=== PATIENT | female | born 1975 | race Caucasian/White ===

== ENCOUNTER 2019-05-06 14:26 | Inpatient (IN) | payer BC ==
[2019-05-06 19:11] VITALS: BMI 26.9
--- NOTE | 2019-05-06 21:17 | HP ---
CIWA Score Nausea/Vomitin-Mild Nausea/No Vomiting Muscle Tremors: 4-Moderate,w/Arms Extend Anxiety: 4-Mod. Anxious/Guarded Agitation: 3 Paroxysmal Sweats: 1-Minimal Palms Moist Orientation: 3-Disoriented Date>2 days Tacttile Disturbances: 0-None Auditory Disturbances: 0-None Visual Disturbances: 0-None Headache: 0-None Present CIWA-Ar Total Score: 16 - Admission Criteria OASAS Guidelines: Admission for Medically Managed Detox: Requires at least one of the followin. CIWA greater than 12 2. Seizures within the past 24 hours 3. Delirium tremens within the past 24 hours 4. Hallucinations within the past 24 hours 5. Acute intervention needed for co occurring medical disorder 6. Acute intervention needed for co occurring psychiatric disorder 7. Severe withdrawal that cannot be handled at a lower level of care (continued vomiting, continued diarrhea, abnormal vital signs) requiring intravenous medication and/or fluids 8. Admission ROS [facility] Chief Complaint: Alcohol withdrawal symptoms Allergies/Adverse Reactions: Allergies Allergy/AdvReac Type Severity Reaction Status Date / Time No Known Allergies Allergy Verified 05/06/19 19:01 History of Present Illness: 44 years old female reports that she started drinking in June 2018. She has never been admitted to detox and this her first admission to [facility]. She reports insignificant period of sobriety. She has medical history of asthma, depression, anxiety and hypothyroid. She denies suicide attempt/ suicidal ideation at this time. Exam Limitations: No Limitations - Ebola screening Have you traveled outside of the country in the last 21 days: No Have you had contact with anyone from an Ebola affected area: No Do you have a fever: No - Review of Systems Constitutional: Chills, Loss of Appetite, Changes in sleep EENT: reports: No Symptoms Reported Respiratory: reports: No Symptoms reported Cardiac: reports: No Symptoms Reported GI: reports: Nausea, Poor Appetite, Poor Fluid Intake, Abdominal cramping : reports: No Symptoms Reported Musculoskeletal: reports: No Symptoms Reported Integumentary: reports: Dryness, Flushing Neuro: reports: Tremors Endocrine: reports: No Symptoms Reported Hematology: reports: No Symptoms Reported Psychiatric: reports: Mood/Affect Appropiate, Orientated x3, Anxious, Depressed Other Systems: Reviewed and Negative Patient History - Patient Medical History Hx Anemia: No Hx Asthma: Yes (Albuterol) Hx Chronic Obstructive Pulmonary Disease (COPD): No Hx Cancer: No Hx Cardiac Disorders: No Hx Congestive Heart Failure: No Hx Hypertension: No Hx Hypercholesterolemia: No Hx Pacemaker: No HX Cerebrovascular Accident: No Hx Seizures: No Hx Dementia: No Hx Diabetes: No Hx Gastrointestinal Disorders: No Hx Liver Disease: No Hx Genitourinary Disorders: No Hx Sexually Transmitted Disorders: No Hx Renal Disease (ESRD): No Hx Thyroid Disease: Yes (Hypothyroid on Synthroid ) Hx Human Immunodeficiency Virus (HIV): No (Negative 2019) Hx Hepatitis C: No Hx Depression: Yes Hx Suicide Attempt: No (Denies suicidal ideation at this time) Hx Bipolar Disorder: Yes Hx Schizophrenia: No Other Medical History: Anxiety - - Patient Surgical History Past Surgical History: Yes Hx Neurologic Surgery: No Hx Cataract Extraction: No Hx Cardiac Surgery: No Hx Lung Surgery: No Hx Breast Surgery: No Hx Breast Biopsy: No Hx Abdominal Surgery: No Hx Appendectomy: No Hx Cholecystectomy: No Hx Genitourinary Surgery: No Hx Section: No Hx Orthopedic Surgery: No Hx Hysterectomy: No Other Surgical History: Gastric bypass 2013 and 2016 Anesthesia Reaction: No - PPD History Previous Implant?: Yes Documented Results: Negative w/o proof Implanted On Prior R Admission?: No PPD to be Administered?: Yes - Reproductive History Patient is a Female of Child Bearing Age (11 -55 yrs old): Yes Last Menstrual Period: 03/31/19 Patient : No - Smoking Cessation Smoking history: Current every day smoker Have you smoked in the past 12 months: Yes Aproximately how many cigarettes per day: 10 Hx Chewing Tobacco Use: No Initiated information on smoking cessation: Yes 'Breaking Loose' booklet given: 05/06/19 - Substance & Tx. History Hx Alcohol Use: Yes Hx Substance Use: Yes Substance Use Type: Alcohol, Marijuana Hx Substance Use Treatment: Yes (None) - Substances abused Alcohol Substance route: Oral Frequency: Daily Amount used: 1pint of vodka/day Age of first use: 44 Date of last use: 05/06/19 Admission Physical Exam [facility] - Vital Signs Vital Signs: Vital Signs - 24 hr 05/06/19 19:08 Temperature 98.6 F Pulse Rate 97 H Respiratory 16 Rate Blood Pressure 142/98 - Physical General Appearance: Yes: Moderate Distress, Tremorous, Irritable, Anxious HEENTM: Yes: Within Normal Limits Respiratory: Yes: Normal Breath Sounds, No Respiratory Distress Neck: Yes: Supple Breast: Yes: Breast Exam Deferred Cardiology: Yes: Tachycardia Abdominal: Yes: Protuberent Genitourinary: Yes: Within Normal Limits Back: Yes: Normal Inspection Musculoskeletal: Yes: Within Normal Limits Extremities: Yes: Tremors Neurological: Yes: Within Normal Limits, Alert, Normal Mood/Affect Integumentary: Yes: Warm Lymphatic: Yes: Within Normal Limits - Diagnostic (1) Alcohol dependence with withdrawal Current Visit: Yes Status: Acute (2) Hypothyroid Current Visit: Yes Status: Chronic Qualifiers: Hypothyroidism type: unspecified Qualified Code(s): E03.9 - Hypothyroidism , unspecified (3) Asthma Current Visit: Yes Status: Chronic Qualifiers: Asthma severity: moderate Asthma complication type: unspecified (4) Anxiety Current Visit: Yes Status: Chronic (5) Depression Current Visit: Yes Status: Chronic Qualifiers: Depression Type: unspecified Qualified Code(s): F32.9 - Major depressive disorder, single episode, unspecified (6) Nicotine dependence Current Visit: Yes Status: Chronic Qualifiers: Nicotine product type: cigarettes Substance use status: in withdrawal Qualified Code(s): F17.213 - Nicotine dependence, cigarettes, with withdrawal Cleared for Admission S - Detox or Rehab [facility] Level of Care: Medically Managed Detox Regimen/Protocol: Librium Claeared for Rehab Admission: No Breathalyzer - Breathalyzer Breathalyzer: 0.102 Urine Drug Screen - Test Device Lot number: [id number] Expiration date: 01/07/21 - Control Is test valid?: Yes - Results Drug screen NEGATIVE: No Urine drug screen results: THC-Marijuana Inpatient Rehab Admission - Rehab Decision to Admit Inpatient rehab admission?: No
[2019-05-06] MEDS ORDERED: IBUPROFEN 400 MG TABLET (FP) PO PRN (21:31)
[2019-05-06] MEDS ORDERED: ACETAMINOPHEN 325 MG TABLET (FP) PO PRN ×2 (21:31)
[2019-05-06] MEDS ORDERED: MAGNESIUM HYDROX 2400MG/30ML ORAL SUSPENSION 30 ML CUP PO PRN (21:31)
[2019-05-06] MEDS ORDERED: chlordiazePOXIDE HCL 25 MG CAPSULE PO PRN (21:31)
[2019-05-06] MEDS ORDERED: MAG HYDROX/AL HYDROX/SIMETH 30 ML UNIT-DOSE CUP PO PRN (21:31)
[2019-05-06] MEDS ORDERED: MAGNESIUM CITRATE 300 ML BOTTLE PO PRN (21:31)
[2019-05-06] MEDS ORDERED: MENTHOL/PHENOL 1 EACH UD MM PRN (21:31)
[2019-05-06] MEDS ORDERED: NICOTINE POLACRILEX 2 MG GUM BUC PRN (21:31)
[2019-05-06] MEDS ORDERED: LEVOTHYROXINE NA 88 MCG TABLET (FP) PO SCH (21:45)
[2019-05-06] MEDS: MELATONIN 5 MG TABLETS PO PRN (22:50)
[2019-05-06] MEDS: chlordiazePOXIDE HCL 25 MG CAPSULE PO SCH (22:50)
[2019-05-06] MEDS: THIAMINE HCL 100 MG TABLET (FP) PO SCH (22:50)
[2019-05-06] MEDS: ALBUTEROL SO4 8 GM HFA INHALER IH PRN (23:35)
[2019-05-07] MEDS: hydrOXYzine PAMOATE 25 MG CAPSULE (FP) PO PRN (01:25)
[2019-05-07] MEDS: chlordiazePOXIDE HCL 25 MG CAPSULE PO SCH ×4 (05:35→22:00)
[2019-05-07] MEDS: METHOCARBAMOL 500 MG TABLET PO PRN (05:37)
[2019-05-07] MEDS: LEVOTHYROXINE NA 88 MCG TABLET (FP) PO SCH (06:25)
[2019-05-07 10:26] LABS: ALBUMIN 3.6 g/dl (3.4-5.0); BILIRUBIN,TOTAL 0.9 mg/dL (0.2-1); BLOOD UREA NITROGEN 11.4 mg/dL (7-18); CALCIUM 8.7 mg/dL (8.5-10.1); CREATININE 0.6 mg/dL (0.55-1.3); POTASSIUM 3.7 mmol/L (3.5-5.1); TOT PROT 6.5 g/dl (6.4-8.2)
[2019-05-07] MEDS: PRENATAL VITAMINS W/ FOLIC ACID TABLET (FP) PO SCH (10:29)
[2019-05-07 10:31] LABS: HEMATOCRIT 29.9 % (32.4-45.2); HEMOGLOBIN 9.6 GM/dL (10.7-15.3); MCH 23.3 pg (25.7-33.7); MCHC 32.2 g/dl (32.0-36.0); MEAN CELL VOLUME 72.4 fl (80-96); MEAN PLT VOLUME 7.8 fl (7.5-11.1); PLATELET COUNT 286 K/MM3 (134-434); RBC 4.13 M/mm3 (3.60-5.2); WHITE BLOOD COUNT 4.8 K/mm3 (4.0-10.0)
[2019-05-07] MEDS: NICOTINE 14 MG/24 HOURS TOPICAL PATCH TD SCH (10:31)
--- NOTE | 2019-05-07 12:55 | CONSULT ---
[facility] Psychiatric Consult - Data Date of interview: 05/07/19 Admission source: [facility] Identifying data: First admission to [facility] for this 44 y/o female self-referred for detoxification. SUZIE issues : alcohol, cannabis, nicotine). Seen on [address] [place]. Patient is single (common-law), mother of two, domiciled and currently employed. Substance Abuse History: Discussed in session. Details in current [facility] report as follows : Smoking history: Current every day smoker. Have you smoked in the past 12 months: Yes. Aproximately how many cigarettes per day: 10. Hx Chewing Tobacco Use: No. Initiated information on smoking cessation: Yes. 'Breaking Loose' booklet given: 05/06/19. - Substance & Tx. History. Hx Alcohol Use: Yes. Hx Substance Use: Yes. Substance Use Type: Alcohol, Marijuana. Hx Substance Use Treatment: Yes (None). - Substances abused. Alcohol. Substance route: Oral. Frequency: Daily. Amount used: 1pint of vodka/day. Age of first use: 44. Date of last use: 05/06/19 Medical History: Medical profile is remarkable for a history of gastric bypass, hypothyroidism and bronchial asthma. Psychiatric History: Patient denies history of psychiatric hospitalizations ( three CPEP visits at [facility] : extended observation and release after a few hours). Diagnosed with Bipolar Disorder. Ms Perez indicates that she is followed at the [facility] health clinic in the [place]. She is prescribed naltexone + prazosin + seroquel (patient is not able to recall the names of these medications). Adherence remains questionable. No history of suicide attempts. Physical/Sexual Abuse/Trauma History: Patient denies. Additional Comment: Urine drug screen results: THC-Marijuana. Noted. Mental Status Exam - Mental Status Exam Alert and Oriented to: Time, Place, Person Cognitive Function: Good Patient Appearance: Well Groomed (short, overweight) Mood: Withdrawn, Hopeful Affect: Appropriate, Normal Range Patient Behavior: Fatigued, Cooperative Speech Pattern: Clear, Appropriate Voice Loudness: Normal Thought Process: Intact, Goal Oriented Thought Disorder: Not Present Hallucinations: Denies Suicidal Ideation: Denies Homicidal Ideation: Denies Insight/Judgement: Poor Sleep: Poorly, Difficulty falling asleep Appetite: Good Gait/Station: Normal Psychiatric Findings - Problem List ([place] 1, 2,3) (1) Alcohol dependence with withdrawal Current Visit: Yes Status: Acute (2) Cannabis dependence Current Visit: Yes Status: Chronic (3) Nicotine dependence Current Visit: Yes Status: Chronic Qualifiers: Nicotine product type: cigarettes Substance use status: in withdrawal Qualified Code(s): F17.213 - Nicotine dependence, cigarettes, with withdrawal (4) Substance induced mood disorder Current Visit: Yes Status: Chronic (5) History of bipolar disorder Current Visit: Yes Status: Chronic (6) Insomnia Current Visit: Yes Status: Chronic - Initial Treatment Plan Initial Treatment Plan: Psychoeducation. Sleep hygiene. Detoxification. AA meetings. Seroquel 50 mg po hs. Side effects/benefits discussed with the patient. Consent (vergbal) given to MD. Lugo.
[2019-05-07] MEDS: BISMUTH SUBSALICYLATE 524 MG/30 ML UD PO PRN (17:24)
--- NOTE | 2019-05-07 18:07 | PN ---
[facility] CIWA - CIWA Score Nausea/Vomitin (Stomach Cramping, Diarrhea.) Muscle Tremors: None Anxiety: 3 Agitation: 3 Paroxysmal Sweats: 3 Orientation: 0-Oriented Tacttile Disturbances: 2-Mild Itch/Numbness/Burn (Chills.) Auditory Disturbances: 0-None Visual Disturbances: 0-None Headache: 0-None Present CIWA-Ar Total Score: 13 S Progress Note (SOAP) Subjective: Stomach Cramping, Diarrhea, Sweating, Chills, Interrupted Sleep, Fatigue. Patient reports That Current withdrawal Detox Symptoms in General Are Gradually Beginning to Diminish in Severity. Objective: PATIENT A & O X 3, OBSERVED AMBULATING ON DETOX UNIT UNASSISTED. IN NO ACUTE DISTRESS. 05/07/19 18:05 Vital Signs Temperature 97.1 F L 05/07/19 17:40 Pulse Rate 95 H 05/07/19 17:40 Respiratory Rate 18 05/07/19 17:40 Blood Pressure 115/79 05/07/19 17:40 O2 Sat by Pulse Oximetry (%) Laboratory Tests 05/07/19 05/07/19 05/07/19 07:40 07:40 07:40 WBC 4.8 RBC 4.13 Hgb 9.6 L Hct 29.9 L MCV 72.4 L MCH 23.3 L MCHC 32.2 RDW 22.0 H Plt Count 286 MPV 7.8 Sodium 139 Potassium 3.7 Chloride 105 Carbon Dioxide 25 Anion Gap 10 BUN 11.4 Creatinine 0.6 Est GFR (CKD-EPI)AfAm 128.48 Est GFR (CKD-EPI)NonAf 110.86 Random Glucose 79 Calcium 8.7 Total Bilirubin 0.9 AST 24 ALT 21 Alkaline Phosphatase 104 Total Protein 6.5 Albumin 3.6 RPR Titer Nonreactive LABS NOTED. Assessment: 05/07/19 18:07 WITHDRAWAL SYMPTOMS. ANEMIA. Plan: CONTINUE DETOX. FEOSOL, 325 MG PO TIDCM FOR ANEMIA NOTED ON DETOX ADMISSION LABORATORY ASSESSMENT. REPEAT CBC ORDERED FOR 05/09/2019 TO SEE IF ANY CHANGE ADMISSION LAB VALUES. PATIENT IS CURRENTLY RECEIVING DAILY MVI CONTAINING B VITAMINS AND IRON WHILE ADMITTED FOR DETOX.
[2019-05-07] MEDS: FERROUS SO4 325 MG TABLET (FP) PO SCH (18:41)
[2019-05-07] MEDS: ALBUTEROL SO4 8 GM HFA INHALER IH PRN (21:40)
[2019-05-07] MEDS: THIAMINE HCL 100 MG TABLET (FP) PO SCH (21:41)
[2019-05-07] MEDS: QUEtiapine FUMARATE 50 MG TABLET PO SCH (21:41)
[2019-05-07] MEDS: MELATONIN 5 MG TABLETS PO PRN (21:42)
[2019-05-08] MEDS: chlordiazePOXIDE HCL 25 MG CAPSULE PO SCH ×4 (05:28→22:04)
[2019-05-08] MEDS: LEVOTHYROXINE NA 88 MCG TABLET (FP) PO SCH (06:47)
[2019-05-08] MEDS: FERROUS SO4 325 MG TABLET (FP) PO SCH ×3 (08:09→16:42)
[2019-05-08] MEDS: PRENATAL VITAMINS W/ FOLIC ACID TABLET (FP) PO SCH (10:08)
[2019-05-08] MEDS: NICOTINE 14 MG/24 HOURS TOPICAL PATCH TD SCH (10:08)
--- NOTE | 2019-05-08 13:33 | PN ---
[facility] CIWA - CIWA Score Nausea/Vomitin-Mild Nausea/No Vomiting Muscle Tremors: 2 Anxiety: 3 Agitation: 2 Paroxysmal Sweats: 1-Minimal Palms Moist Orientation: 0-Oriented Tacttile Disturbances: 0-None Auditory Disturbances: 0-None Visual Disturbances: 0-None Headache: 0-None Present CIWA-Ar Total Score: 9 S Progress Note (SOAP) Subjective: doing well with librium detox regimen sleep better at night well rested less tremore mild anxious Objective: 05/08/19 13:32 Vital Signs Temperature 97.7 F 05/08/19 09:51 Pulse Rate 101 H 05/08/19 09:51 Respiratory Rate 18 05/08/19 09:51 Blood Pressure 126/82 05/08/19 09:51 O2 Sat by Pulse Oximetry (%) Laboratory Last Values WBC 4.8 K/mm3 (4.0-10.0) 05/07/19 07:40 RBC 4.13 M/mm3 (3.60-5.2) 05/07/19 07:40 Hgb 9.6 GM/dL (10.7-15.3) L 05/07/19 07:40 Hct 29.9 % (32.4-45.2) L 05/07/19 07:40 MCV 72.4 fl (80-96) L 05/07/19 07:40 MCH 23.3 pg (25.7-33.7) L 05/07/19 07:40 MCHC 32.2 g/dl (32.0-36.0) 05/07/19 07:40 RDW 22.0 % (11.6-15.6) H 05/07/19 07:40 Plt Count 286 K/MM3 (134-434) 05/07/19 07:40 MPV 7.8 fl (7.5-11.1) 05/07/19 07:40 Sodium 139 mmol/L (136-145) 05/07/19 07:40 Potassium 3.7 mmol/L (3.5-5.1) 05/07/19 07:40 Chloride 105 mmol/L (98-107) 05/07/19 07:40 Carbon Dioxide 25 mmol/L (21-32) 05/07/19 07:40 Anion Gap 10 MMOL/L (8-16) 05/07/19 07:40 BUN 11.4 mg/dL (7-18) 05/07/19 07:40 Creatinine 0.6 mg/dL (0.55-1.3) 05/07/19 07:40 Est GFR (CKD-EPI)AfAm 128.48 05/07/19 07:40 Est GFR (CKD-EPI)NonAf 110.86 05/07/19 07:40 Random Glucose 79 mg/dL (74-106) 05/07/19 07:40 Calcium 8.7 mg/dL (8.5-10.1) 05/07/19 07:40 Total Bilirubin 0.9 mg/dL (0.2-1) 05/07/19 07:40 AST 24 U/L (15-37) 05/07/19 07:40 ALT 21 U/L (13-61) 05/07/19 07:40 Alkaline Phosphatase 104 U/L (45-117) 05/07/19 07:40 Total Protein 6.5 g/dl (6.4-8.2) 05/07/19 07:40 Albumin 3.6 g/dl (3.4-5.0) 05/07/19 07:40 RPR Titer Nonreactive (NONREACTIVE) 05/07/19 07:40 lab noted Assessment: 05/08/19 13:33 alcohol withdrawal sx Plan: continue librium detox regimen
[2019-05-08] MEDS: METHOCARBAMOL 500 MG TABLET PO PRN (14:00)
[2019-05-08] MEDS: hydrOXYzine PAMOATE 25 MG CAPSULE (FP) PO PRN (14:00)
[2019-05-08] MEDS: BISMUTH SUBSALICYLATE 524 MG/30 ML UD PO PRN ×2 (18:30→21:59)
[2019-05-08] MEDS: QUEtiapine FUMARATE 50 MG TABLET PO SCH (21:58)
[2019-05-08] MEDS: THIAMINE HCL 100 MG TABLET (FP) PO SCH (21:58)
[2019-05-08] MEDS: MELATONIN 5 MG TABLETS PO PRN (22:01)
[2019-05-08] MEDS: ALBUTEROL SO4 8 GM HFA INHALER IH PRN (22:15)
[2019-05-09] MEDS ORDERED: chlordiazePOXIDE HCL 10 MG CAPSULE PO PRN
[2019-05-09] MEDS: chlordiazePOXIDE HCL 10 MG CAPSULE PO SCH ×4 (05:28→22:47)
[2019-05-09] MEDS: FERROUS SO4 325 MG TABLET (FP) PO SCH ×3 (07:15→17:31)
[2019-05-09] MEDS: LEVOTHYROXINE NA 88 MCG TABLET (FP) PO SCH (07:15)
[2019-05-09] MEDS: NICOTINE 14 MG/24 HOURS TOPICAL PATCH TD SCH (10:09)
[2019-05-09] MEDS: PRENATAL VITAMINS W/ FOLIC ACID TABLET (FP) PO SCH (10:11)
[2019-05-09] MEDS: ALBUTEROL SO4 8 GM HFA INHALER IH PRN (10:11)
[2019-05-09 11:44] LABS: BASO % 0.6 % (0-2.0); EOS % 6.4 % (0-4.5); HEMATOCRIT 31.5 % (32.4-45.2); HEMOGLOBIN 10.1 GM/dL (10.7-15.3); LYMPH % 27.4 % (8-40); MCH 23.7 pg (25.7-33.7); MCHC 32.2 g/dl (32.0-36.0); MEAN CELL VOLUME 73.8 fl (80-96); MONO % 7.2 % (3.8-10.2); NEUT % 58.4 % (42.8-82.8); PLATELET COUNT 278 K/MM3 (134-434); RBC 4.27 M/mm3 (3.60-5.2); WHITE BLOOD COUNT 4.6 K/mm3 (4.0-10.0)
[2019-05-09 12:49] LABS: ANISOCYTOSIS 2+; MACROCYTOSIS 0; PLATELET ESTIMATE NORMAL
--- NOTE | 2019-05-09 12:50 | PN ---
S CIWA - CIWA Score Nausea/Vomitin-No Nausea/No Vomiting Muscle Tremors: 2 Anxiety: 2 Agitation: 2 Paroxysmal Sweats: No Perspiration Orientation: 0-Oriented Tacttile Disturbances: 0-None Auditory Disturbances: 0-None Visual Disturbances: 0-None Headache: 0-None Present CIWA-Ar Total Score: 6 BHS Progress Note (SOAP) Subjective: doing well with librium detox regimen less tremor mild anxiety Objective: 05/09/19 12:50 Vital Signs Temperature 96.3 F L 05/09/19 09:09 Pulse Rate 104 H 05/09/19 09:09 Respiratory Rate 20 05/09/19 09:09 Blood Pressure 121/80 05/09/19 09:09 O2 Sat by Pulse Oximetry (%) Laboratory Last Values WBC 4.6 K/mm3 (4.0-10.0) 05/09/19 08:50 RBC 4.27 M/mm3 (3.60-5.2) 05/09/19 08:50 Hgb 10.1 GM/dL (10.7-15.3) L 05/09/19 08:50 Hct 31.5 % (32.4-45.2) L 05/09/19 08:50 MCV 73.8 fl (80-96) L 05/09/19 08:50 MCH 23.7 pg (25.7-33.7) L 05/09/19 08:50 MCHC 32.2 g/dl (32.0-36.0) 05/09/19 08:50 RDW 23.0 % (11.6-15.6) H 05/09/19 08:50 Plt Count 278 K/MM3 (134-434) 05/09/19 08:50 MPV 8.0 fl (7.5-11.1) 05/09/19 08:50 Absolute Neuts (auto) 2.7 K/mm3 (1.5-8.0) 05/09/19 08:50 Neutrophils % 58.4 % (42.8-82.8) 05/09/19 08:50 Lymphocytes % 27.4 % (8-40) 05/09/19 08:50 Monocytes % 7.2 % (3.8-10.2) 05/09/19 08:50 Eosinophils % 6.4 % (0-4.5) H 05/09/19 08:50 Basophils % 0.6 % (0-2.0) 05/09/19 08:50 Nucleated RBC % 0 % (0-0) 05/09/19 08:50 Sodium 139 mmol/L (136-145) 05/07/19 07:40 Potassium 3.7 mmol/L (3.5-5.1) 05/07/19 07:40 Chloride 105 mmol/L (98-107) 05/07/19 07:40 Carbon Dioxide 25 mmol/L (21-32) 05/07/19 07:40 Anion Gap 10 MMOL/L (8-16) 05/07/19 07:40 BUN 11.4 mg/dL (7-18) 05/07/19 07:40 Creatinine 0.6 mg/dL (0.55-1.3) 05/07/19 07:40 Est GFR (CKD-EPI)AfAm 128.48 05/07/19 07:40 Est GFR (CKD-EPI)NonAf 110.86 05/07/19 07:40 Random Glucose 79 mg/dL (74-106) 05/07/19 07:40 Calcium 8.7 mg/dL (8.5-10.1) 05/07/19 07:40 Total Bilirubin 0.9 mg/dL (0.2-1) 05/07/19 07:40 AST 24 U/L (15-37) 05/07/19 07:40 ALT 21 U/L (13-61) 05/07/19 07:40 Alkaline Phosphatase 104 U/L (45-117) 05/07/19 07:40 Total Protein 6.5 g/dl (6.4-8.2) 05/07/19 07:40 Albumin 3.6 g/dl (3.4-5.0) 05/07/19 07:40 POC Urine HCG, Qual Negative 05/06/19 20:40 RPR Titer Nonreactive (NONREACTIVE) 05/07/19 07:40 lab noted Assessment: 05/09/19 12:51 alcohol withdrawal sx Plan: continue librium detox regimen
[2019-05-09] MEDS: METHOCARBAMOL 500 MG TABLET PO PRN (13:24)
--- NOTE | 2019-05-09 13:26 | EKG ---
Test Reason : Blood Pressure : / mmHG Vent. Rate : 082 BPM Atrial Rate : 082 BPM P-R Int : 146 ms QRS Dur : 080 ms QT Int : 390 ms P-R-T Axes : 071 056 040 degrees QTc Int : 455 ms NORMAL SINUS RHYTHM NORMAL ECG NO PREVIOUS ECGS AVAILABLE Confirmed by ALMA RODRÍGUEZ MD ([id number]) on 05/09/2019 1:26:39 PM Referred By: Confirmed By:ALMA RODRÍGUEZ MD
[2019-05-09] MEDS: BISMUTH SUBSALICYLATE 524 MG/30 ML UD PO PRN (18:33)
[2019-05-09] MEDS: QUEtiapine FUMARATE 50 MG TABLET PO SCH (22:47)
[2019-05-09] MEDS: MELATONIN 5 MG TABLETS PO PRN (22:47)
[2019-05-09] MEDS: THIAMINE HCL 100 MG TABLET (FP) PO SCH (22:47)
[2019-05-10] MEDS: chlordiazePOXIDE HCL 10 MG CAPSULE PO SCH ×2 (05:34→17:04)
[2019-05-10] MEDS: LEVOTHYROXINE NA 88 MCG TABLET (FP) PO SCH (06:05)
[2019-05-10] MEDS: FERROUS SO4 325 MG TABLET (FP) PO SCH ×3 (07:05→17:04)
[2019-05-10] MEDS: PRENATAL VITAMINS W/ FOLIC ACID TABLET (FP) PO SCH (10:20)
[2019-05-10] MEDS: NICOTINE 14 MG/24 HOURS TOPICAL PATCH TD SCH (10:20)
[2019-05-10] MEDS: METHOCARBAMOL 500 MG TABLET PO PRN ×2 (15:36→22:05)
--- NOTE | 2019-05-10 16:48 | PN ---
S CIWA - CIWA Score Nausea/Vomitin-No Nausea/No Vomiting Muscle Tremors: None Anxiety: 3 Agitation: 3 Paroxysmal Sweats: No Perspiration Orientation: 0-Oriented Tacttile Disturbances: 0-None Auditory Disturbances: 0-None Visual Disturbances: 0-None Headache: 0-None Present CIWA-Ar Total Score: 6 BHS Progress Note (SOAP) Subjective: Anxious. Objective: PATIENT A & O X 3, OBSERVED AMBULATING ON DETOX UNIT UNASSISTED. IN NO ACUTE DISTRESS. 05/10/19 16:48 Vital Signs Temperature 96.5 F L 05/10/19 09:34 Pulse Rate 100 H 05/10/19 09:34 Respiratory Rate 18 05/10/19 09:34 Blood Pressure 116/80 05/10/19 09:34 O2 Sat by Pulse Oximetry (%) Laboratory Tests 05/06/19 05/07/19 05/07/19 20:40 07:40 07:40 WBC 4.8 RBC 4.13 Hgb 9.6 L Hct 29.9 L MCV 72.4 L MCH 23.3 L MCHC 32.2 RDW 22.0 H Plt Count 286 MPV 7.8 Absolute Neuts (auto) Neutrophils % Lymphocytes % Monocytes % Eosinophils % Basophils % Nucleated RBC % Hypochromia Platelet Estimate Polychromasia Poikilocytosis Anisocytosis Microcytosis Macrocytosis Sodium 139 Potassium 3.7 Chloride 105 Carbon Dioxide 25 Anion Gap 10 BUN 11.4 Creatinine 0.6 Est GFR (CKD-EPI)AfAm 128.48 Est GFR (CKD-EPI)NonAf 110.86 Random Glucose 79 Calcium 8.7 Total Bilirubin 0.9 AST 24 ALT 21 Alkaline Phosphatase 104 Total Protein 6.5 Albumin 3.6 POC Urine HCG, Qual Negative RPR Titer 05/07/19 05/09/19 07:40 08:50 WBC 4.6 RBC 4.27 Hgb 10.1 L Hct 31.5 L MCV 73.8 L MCH 23.7 L MCHC 32.2 RDW 23.0 H Plt Count 278 MPV 8.0 Absolute Neuts (auto) 2.7 Neutrophils % 58.4 Lymphocytes % 27.4 Monocytes % 7.2 Eosinophils % 6.4 H Basophils % 0.6 Nucleated RBC % 0 Hypochromia 0 Platelet Estimate Normal Polychromasia 0 Poikilocytosis 0 Anisocytosis 2+ Microcytosis 1+ Macrocytosis 0 Sodium Potassium Chloride Carbon Dioxide Anion Gap BUN Creatinine Est GFR (CKD-EPI)AfAm Est GFR (CKD-EPI)NonAf Random Glucose Calcium Total Bilirubin AST ALT Alkaline Phosphatase Total Protein Albumin POC Urine HCG, Qual RPR Titer Nonreactive LABS NOTED. Assessment: 05/10/19 16:49 WITHDRAWAL SYMPTOMS. ANEMIA. Plan: CONTINUE DETOX. CONTINUE FEOSOL PO FOR ANEMIA NOTED ON DETOXC ADMISSION AND REPEAT LABORATORY ASSESSMENTS. PATIENT SCHEDULED FOR D/C FROM DETOX UNIT TOMORROW.
[2019-05-10] MEDS: QUEtiapine FUMARATE 50 MG TABLET PO SCH (22:05)
[2019-05-10] MEDS: THIAMINE HCL 100 MG TABLET (FP) PO SCH (22:05)
[2019-05-10] MEDS: hydrOXYzine PAMOATE 25 MG CAPSULE (FP) PO PRN (22:09)
[2019-05-11] MEDS ORDERED: chlordiazePOXIDE HCL 10 MG CAPSULE PO ONE (05:00)
[2019-05-11] MEDS: LEVOTHYROXINE NA 88 MCG TABLET (FP) PO SCH (06:24)
[2019-05-11 06:49] VITALS: BP 108/65; PULSE 70; TEMP 97.4
[2019-05-11] MEDS: FERROUS SO4 325 MG TABLET (FP) PO SCH (07:47)
--- NOTE | 2019-05-11 15:53 | DS ---
[facility] Detox Discharge Summary Admission Date: 05/06/19 Discharge Date: 05/11/19 - History Present History: Alcohol Dependence, Cannabis Dependence Additional Comments: PATIENT RETURNING HOME, ADVISED TO CONSIDER LOCAL 12-STEP / AA OUTPATIENT SUPPORT GROUPS FOR AFTERCARE. PATIENT ADVISED TO FOLLOW-UP WITH APPLICATIONS PROGRAMMER AFTER DISCHARGE FROM DETOX FOR GENERAL MEDICAL ASSESSMENT AND FOR ANEMIA NOTED ON DETOX ADMISSION AND REPEAT LABORATORY ASSESSMENTS. PATIENT VERBALIZED UNDERSTANDING OF RECOMMENDATION. COPIES OF RESULTS OF ALL LABS DRAWN WHILE ADMITTED FOR DETOX GIVEN TO PATIENT AT TIME OF DISCHARGE FROM DETOX UNIT. PATIENT DECLINED OFFER OF MEDICATION PRESCRIPTION FOR HOME MEDICATION AT TIME OF DISCHARGE FROM DETOX, NOTING THAT HE CURRENTLY HAS ADEQUATE SUPPLIES OF ALL PRESCRIBED HOME MEDICATIONS AT HOME. PATIENT WAS DISCHARGED FROM DETOX UNIT IN STABLE MEDICAL CONDITION. Pertinent Past History: Depression, Anxiety, Hypothyroidism, Asthma, Nicotine Dependence, Bipolar Disorder, Anemia, Insomnia. - Physical Exam Results Vital Signs: Vital Signs Temperature 97.4 F L 05/11/19 06:49 Pulse Rate 70 05/11/19 06:49 Respiratory Rate 18 05/11/19 06:49 Blood Pressure 108/65 05/11/19 06:49 O2 Sat by Pulse Oximetry (%) Pertinent Admission Physical Exam Findings: WITHDRAWAL SYMPTOMS. Laboratory Tests 05/06/19 05/07/19 05/07/19 20:40 07:40 07:40 WBC 4.8 RBC 4.13 Hgb 9.6 L Hct 29.9 L MCV 72.4 L MCH 23.3 L MCHC 32.2 RDW 22.0 H Plt Count 286 MPV 7.8 Absolute Neuts (auto) Neutrophils % Lymphocytes % Monocytes % Eosinophils % Basophils % Nucleated RBC % Hypochromia Platelet Estimate Polychromasia Poikilocytosis Anisocytosis Microcytosis Macrocytosis Sodium 139 Potassium 3.7 Chloride 105 Carbon Dioxide 25 Anion Gap 10 BUN 11.4 Creatinine 0.6 Est GFR (CKD-EPI)AfAm 128.48 Est GFR (CKD-EPI)NonAf 110.86 Random Glucose 79 Calcium 8.7 Total Bilirubin 0.9 AST 24 ALT 21 Alkaline Phosphatase 104 Total Protein 6.5 Albumin 3.6 POC Urine HCG, Qual Negative RPR Titer 05/07/19 05/09/19 07:40 08:50 WBC 4.6 RBC 4.27 Hgb 10.1 L Hct 31.5 L MCV 73.8 L MCH 23.7 L MCHC 32.2 RDW 23.0 H Plt Count 278 MPV 8.0 Absolute Neuts (auto) 2.7 Neutrophils % 58.4 Lymphocytes % 27.4 Monocytes % 7.2 Eosinophils % 6.4 H Basophils % 0.6 Nucleated RBC % 0 Hypochromia 0 Platelet Estimate Normal Polychromasia 0 Poikilocytosis 0 Anisocytosis 2+ Microcytosis 1+ Macrocytosis 0 Sodium Potassium Chloride Carbon Dioxide Anion Gap BUN Creatinine Est GFR (CKD-EPI)AfAm Est GFR (CKD-EPI)NonAf Random Glucose Calcium Total Bilirubin AST ALT Alkaline Phosphatase Total Protein Albumin POC Urine HCG, Qual RPR Titer Nonreactive LABS NOTED. - Treatment Hospital Course: Detox Protocol Followed, Detoxed Safely, Responded well, Discharged Condition Good Patient has Accepted a Rehab Referral to: PT. ADVISED TO CONSIDER LOCAL 12-STEP / AA OUTPATIENT SUPPROT GROUP. - Medication Discharge Medications: Ambulatory Orders Levothyroxine [Synthroid -] 88 mcg PO DAILY 05/06/19 Naltrexone HCl 50 mg PO DAILY 05/06/19 Prazosin HCl 5 mg PO HS 05/06/19 Quetiapine Fumarate [Seroquel -] 50 mg PO HS 05/06/19 - Diagnosis (1) Alcohol dependence with withdrawal Status: Acute Qualifiers: Complication of substance-induced condition: uncomplicated Qualified Code(s ): F10.230 - Alcohol dependence with withdrawal, uncomplicated (2) Anemia Status: Acute Qualifiers: Anemia type: unspecified type Qualified Code(s): D64.9 - Anemia, unspecified (3) Anxiety Status: Chronic (4) Asthma Status: Chronic Qualifiers: Asthma severity: moderate Asthma persistence: unspecified Asthma complication type: unspecified Qualified Code(s): J45.909 - Unspecified asthma , uncomplicated (5) Depression Status: Chronic Qualifiers: Depression Type: unspecified Qualified Code(s): F32.9 - Major depressive disorder, single episode, unspecified (6) Hypothyroid Status: Chronic Qualifiers: Hypothyroidism type: unspecified Qualified Code(s): E03.9 - Hypothyroidism , unspecified (7) Nicotine dependence Status: Chronic Qualifiers: Nicotine product type: cigarettes Substance use status: in withdrawal Qualified Code(s): F17.213 - Nicotine dependence, cigarettes, with withdrawal (8) History of bipolar disorder Status: Chronic (9) Insomnia Status: Chronic Qualifiers: Insomnia type: unspecified Qualified Code(s): G47.00 - Insomnia, unspecified (10) Substance induced mood disorder Status: Chronic (11) Cannabis dependence Status: Chronic - AMA Did Patient Leave Against Medical Advice: No [facility] CIWA - CIWA Score Nausea/Vomitin-No Nausea/No Vomiting Muscle Tremors: None Anxiety: 3 Agitation: 1-Slight > Activity Paroxysmal Sweats: No Perspiration Orientation: 0-Oriented Tacttile Disturbances: 0-None Auditory Disturbances: 0-None Visual Disturbances: 0-None Headache: 0-None Present CIWA-Ar Total Score: 4
== END 2019-05-11 09:02 | disposition home or self-care (01) | DRG 897 ==
LOC: YASAS 14:26 → Y3N 21:56
PROVIDERS: ADMIT Surgery; ATTEND Surgery
PROC: HZ2ZZZZ Detoxification Services for Substance Abuse Treatment (ICD-10-PCS; principal; 2019-05-06)
DX: F10.230 Alcohol dependence with withdrawal, uncomplicated (principal); F12.20 Cannabis dependence, uncomplicated; F17.213 Nicotine dependence, cigarettes, with withdrawal; F41.9 Anxiety disorder, unspecified; F32.9 Major depressive disorder, single episode, unspecified; F19.24 Other psychoactive substance dependence with psychoactive substance-induced mood disorder; D64.9 Anemia, unspecified; J45.909 Unspecified asthma, uncomplicated; E03.9 Hypothyroidism, unspecified; G47.00 Insomnia, unspecified; R00.0 Tachycardia, unspecified; Z98.84 Bariatric surgery status
CPT/HCPCS: 36415; 80053; 81025; 85025; 85027; 86593; 93005; 93010